=== PATIENT | male | born 1965 | race Caucasian/White ===

== ENCOUNTER → 2020-06-10 | Outpatient (CLI) | payer OTHER ==
[~2020-06-10] MED LIST: PAXIL10 MG PO
--- NOTE | 2020-06-10 10:07 | Diagnostic Imaging Report ---
EXAMINATION: Lumbar spine radiographs - 3 views CLINICAL HISTORY: Low back pain COMPARISON: None. DISCUSSION: Five nonrib-bearing lumbar type vertebral bodies are identified. Mild anterior height loss of T11 and T12 vertebral bodies. Lumbar vertebral body heights are well preserved. Lumbar lordosis without subluxation or spondylolisthesis. Mild multilevel degenerative disc changes with small anterior osteophytes. Mild multilevel facet arthropathy. Soft tissues are unremarkable. IMPRESSION: 1. Mild anterior height loss of T11 and T12 vertebral bodies, may be chronic however if clinical concern for acute compression fracture persists consider further evaluation with thoracic spine MRI. 2. Mild multilevel degenerative disc changes and facet arthropathy of the lumbar spine. Signed by: Dr. Rosendo Barrios M.D. on 06/10/2020 10:04 AM
== END ==
LOC: RAD 09:03
PROVIDERS: ATTEND Chiropractor
DX: M54.5 Low back pain (principal)
CPT/HCPCS: 72100